=== PATIENT | male | born 1960 | race Caucasian/White ===

== ENCOUNTER → 2019-05-01 | Outpatient (CLI) | payer OTHER, SELFPAY ==
[2017-04-14 09:40] VITALS: BMI 28.5
[2019-05-01 10:14] LABS: Absolute Lymphocyte Count 1.25 X10^3/ul (0.83-4.51); Absolute Neutrophil Count 2.9 X10^3/uL (2.0-7.7); Basophil# 0.02 X10^3/uL; Basophil% 0.4 % (0-1); Eosinophil# 0.18 X10^3/uL; Eosinophils% 3.7 % (0-5); Hematocrit 42.1 % (40-54); Lymphocyte # 1.25 X10^3/ul (4.0); Lymphocyte % 25.9 % (19-41); Mean Corp Hgb Conc 33.3 g/gl (32-36); Mean Corpuscular Hgb 29.7 pg (27.0-32.0); Mean Corpuscular Volume 89.4 fL (80-94); Mean Platelet Vol. 10.2 fl (6.2-12.0); Monocyte# 0.44 X10^3/uL; Monocyte% 9.1 % (0-10); Neutrophil # 2.93 X10^3/uL (2.7-7.7); Neutrophil % 60.9 % (47-70); Platelet Count 167 K/mm3 (150-450); RBC Distribution Width CV 12.4 % (11.6-14.6); RBC Distribution Width SD 40.1 fl (35.1-43.9); Red Blood Count 4.71 M/mm3 (4.6-6.2); White Blood Count 4.8 K/mm3 (4.4-11.0)
[2019-05-01 10:17] LABS: POSITIVE COUNT NO; POSITIVE DIFFERENTIAL NO; POSITIVE MORPHOLOGY NO
[2019-05-01 10:46] LABS: AST(SGOT) 31 U/L (15-37); Alanine Aminotransfer ALT/SGPT 40 U/L (16-61); Albumin, Serum 3.9 g/dL (3.2-5.0); Alkaline Phosphatase 70 U/L (45-117); Bilirubin, Direct 0.11 mg/dL (0.00-0.30); Globulin 3.3 g/dL (2.2-4.2); Protein, Total 7.2 g/dL (6.4-8.2)
== END | disposition home or self-care (01) ==
LOC: LAB 09:33
PROVIDERS: Family Provider Family Medicine; PCP Family Medicine; Referring Provider Dermatology; Visit Provider Dermatology
DX: Z79.899 Other long term (current) drug therapy (principal)
CPT/HCPCS: 36415; 80076; 85025

== ENCOUNTER → 2023-02-26 | Outpatient (CLI) | payer MEDICARE, MEDICAID, SELFPAY ==
[2023-02-26 10:52] LABS: EXAGEN MAILED SPECIMEN
[2023-02-26 12:56] LABS: Absolute Lymphocyte Count 1.44 X10^3/uL (0.83-4.51); Absolute Neutrophil Count 4.8 X10^3/uL (2.0-7.7); Basophil# 0.03 X10^3/uL; Basophil% 0.4 % (0-1); Eosinophil# 0.04 X10^3/uL; Eosinophils% 0.6 % (0-5); Hematocrit 43.6 % (40-54); Hemoglobin 13.7 g/dL (13.0-16.5); Lymphocyte # 1.44 X10^3/ul (0.83-4.51); Lymphocyte % 21.1 % (19-41); Mean Corp Hgb Conc 31.4 g/dL (32-36); Mean Corpuscular Volume 92.4 fL (80-94); Mean Platelet Vol. 10.5 fl (6.2-12.0); Monocyte# 0.51 X10^3/uL; Monocyte% 7.5 % (0-10); NRBC Flagged by Analyzer 0 % (0-5); Neutrophil % 70.3 % (47-70); Platelet Count 225 K/mm3 (150-450); RBC Distribution Width CV 12.9 % (11.6-14.6); RBC Distribution Width SD 44.1 fl (35.1-43.9); Red Blood Count 4.72 M/mm3 (4.6-6.2); White Blood Count 6.8 K/mm3 (4.4-11.0)
[2023-02-26 13:11] LABS: Color, Urine Yellow (Yellow); Glucose, Dipstick Normal (Normal); Ketone-Dipstick Negative (Negative); Leukocyte Esterase-Dipstick Negative /ul (Negative); Nitrite-Dipstick Negative (Negative); Occult Blood-Urine Negative /ul (Negative); Protein-Dipstick 15 mg/dl (Negative); Specific Gravity, Urine 1.015 (1.002-1.030); Urine Bilirubin Dipstick Negative (Negative); Urine Clarity Clear (Clear); Urine Urobilinogen Normal (Normal)
[2023-02-26 13:42] LABS: ALB/GLOB Ratio 1.1 RATIO (0.9-2.4); AST(SGOT) 40 U/L (15-37); Alanine Aminotransfer ALT/SGPT 61 U/L (16-61); Albumin, Serum 4.2 g/dL (3.2-5.0); Alkaline Phosphatase 78 U/L (45-117); Anion Gap 6 (5-15); BUN 24 mg/dL (7-18); BUN/Creat Ratio 24.5 RATIO (10-20); Calcium,Total 9.8 mg/dL (8.5-10.1); Chloride 104 mmol/L (98-107); Creatinine, Serum 0.98 mg/dL (0.70-1.30); EST Glomerular Filtration Rate 82 mL/min (>60); Est Glom Filt Rate - Afr Amer 99 mL/min (>60); Globulin 3.8 g/dL (2.2-4.2); Glucose 87 mg/dL (74-106); Sodium Level 136 mmol/L (136-145)
[2023-02-26 13:54] LABS: Protein, Urine (Random) 19.2 mg/dL (<11.9); Protein:Creat Ratio 188 mg/g CRE (0-200)
[2023-02-26 14:19] LABS: Hepatitis B Surface Antibody Non-Reactive; Hepatitis B Surface Antigen Non-Reactive (Nonreactive); Hepatitis C Antibody Non-Reactive (Nonreactive)
== END | disposition home or self-care (01) ==
PROVIDERS: PCP Family Medicine; Referring Provider Internal Medicine Rheumatology; Visit Provider Internal Medicine Rheumatology
DX: L40.59 Other psoriatic arthropathy (principal); L40.8 Other psoriasis; R76.8 Other specified abnormal immunological findings in serum; M65.311 Trigger thumb, right thumb
CPT/HCPCS: 36415; 80053; 81002; 82570; 84156; 85025; 86140; 86706; 86803; 87340

== ENCOUNTER 2024-05-11 07:15 | Emergency (ER) | payer MEDICARE, MEDICAID, SELFPAY ==
[2024-05-11 07:16] VITALS: BP 163/81; PULSE 68; RESP 15; TEMP 36.4; O2SAT 99; BMI 26.9
--- NOTE | 2024-05-11 07:27 | CT_ITS ---
STUDY: CT ABDOMEN AND PELVIS WITHOUT CONTRAST REASON FOR EXAM: Male, 64 years old. History of a small left renal calculus. RADIATION DOSAGE (If Supplied By Facility): CTDIvol = ( 7.92 ) mGy, DLP = ( 450.57 ) mGycm TECHNIQUE: Transaxial images were obtained from the dome of the diaphragm to the symphysis pubis without oral contrast, and without intravenous contrast. Sagittal and coronal images were reconstructed. Individualized dose optimization techniques were used for this CT. COMPARISON: None. FINDINGS: Increased linear markings with areas of confluence in both lower lobes more prominent on the right side suggestive of bibasilar atelectasis. The visualized portions of the heart are within normal limits. Normal liver. Normal gallbladder and extrahepatic biliary system. Normal spleen. Normal pancreas. Normal bilateral adrenal glands. There is a nonobstructive 3.8 mm calculus in the mid aspect of the right kidney. There is a 2.2 mm nonobstructive calculus in the upper pole calyx of the left kidney. 2 mm nonobstructive calculus in a lower pole calyx of the left kidney. There is a 1.5 cm cyst in the upper lateral aspect of the left kidney. There is evidence of left perinephric stranding. Mild degree of left hydronephrosis and left hydroureter due to a 5.4 mm calculus at the left ureterovesical junction. Normal visualized stomach. Normal small intestine. Normal colon. The appendix is visualized and appears normal. There is diffuse atherosclerotic calcification of the abdominal aorta, without a demonstrated aneurysm. Normal inferior vena cava. Normal retroperitoneum. Normal urinary bladder. There are prostatic calcifications. Small bilateral inguinal hernias containing fat more prominent on the left side. There are diffuse degenerative changes of the visualized lumbar spine. Status post right total hip replacement. CT/Abdomen/Pelvis without Cont IMPRESSION: There is a 5.4 mm calculus at the left ureterovesical junction causing mild degree of left hydronephrosis with left perinephric stranding. Small bilateral inguinal hernias containing fat slightly more prominent on the left side. Nonobstructive bilateral intrarenal calculi. Increased markings at the lung bases slightly worse on the right lung base suggestive of bibasilar atelectasis. Electronically Signed: Hipolito Leonardo MD at 9:01 EDT ,
--- NOTE | 2024-05-11 07:28 | EX.ED.DYSGE1 ---
HPI History of Present Illness Chief Complaint: Flank Pain Narrative Narrative: 64-year-old male past medical history of hypertension, previous kidney stones, states that 4 days ago he was at an outside facility and was diagnosed with at least a 5 mm stone on the left. He does not follow-up with urology regularly. No recent hematuria, no fevers or chills but he has been nauseated. He states he was placed on ciprofloxacin, and oxycodone along with Flomax. He took the medication this morning at around 330, approximately 4 hours ago, and did not have relief of his symptoms. He is having left-sided pain that radiates towards the right. Still no hematuria or other symptoms. He presents for pain control. [facility] Home Medications ?Medication ?Instructions ?Recorded ?Last Taken ?Type Cortisone Shot 04/14/17 04/08/17 History calcium carbonate 500 mg PO DAILY 04/14/17 Unknown History doxycycline hyclate 100 mg capsule 100 mg PO BID ##20 04/14/17 Unknown Rx fluoxetine 20 mg capsule 20 mg PO BID 04/14/17 Unknown History multivitamin,ib-jeis-qosbfnif 27 1 tab PO DAILY 04/14/17 Unknown History mg-0.4 mg tablet (Therems-M) naproxen 250 mg tablet 250 mg PO BID 04/14/17 Unknown History omega 3-dha 60 mg-epa 90 mg-fish 1 cap PO DAILY 04/14/17 Unknown History oil 500 mg capsule, delayed release (Fish Oil) ketorolac 10 mg tablet 10 mg PO TID PRN pain 5 days #15 05/11/24 Unknown Rx tabs Allergy/AdvReac Type Severity Reaction Status Date / Time No Known Allergies Allergy Verified 05/11/24 07:20 Social History Smoking Status: Never smoker ROS ROS ED ROS Narrative Constitutional: No fever, no chills. HEENT: No sore throat. No neck pain. No loss of vision. No rhinorrhea. Cardiovascular: No chest pain. No palpitations. No pedal edema. Respiratory: No cough, no shortness of breath. Abdominal: No abdominal pain. Positive nausea. No vomiting. Genitourinary: No dysuria. No hematuria. Positive left flank pain. Left flank pain radiates towards the right. Musculoskeletal: No myalgias. No arthralgias. Neurologic: No headaches. No dizziness. No lightheadedness. Skin: No rash. No change in color. Psychiatric: No depression. No anxiety. EXAM Physical Exam Narrative Exam Narrative: Afebrile. Vital signs noted. Regular rate and rhythm. Lungs clear to auscultation bilaterally. Abdomen soft nontender with normal active bowel sounds. No CVA tenderness to percussion, left. Neurological examination nonfocal and nonlateralizing. Const Vital Signs: 05/11/24 07:16 05/11/24 09:09 Temperature 97.5 F L 98.1 F Temperature Source Temporal Pulse Rate 68 78 Respiratory Rate 15 18 Blood Pressure 163/81 H 160/81 H Blood Pressure Mean 108 107 Pulse Ox 99 98 Oxygen Delivery Method Room Air MDM MDM MDM Narrative Medical decision making narrative: With the patient's reported history of ureterolithiasis, suspicion is high for uncontrolled ureteral colic. Also in the differential diagnosis but not limited to is pyelonephritis. I have low suspicion for diverticulitis or other reasons for his left flank pain because the history and physical does not support this. He will be given Toradol intravenously, I do feel that repeat imaging is indicated to see if the stone has moved or to try and size the stone. Additionally, basic laboratory work will be obtained. I reviewed his laboratory work and he has normal white count of 9.8, hemoglobin slightly low at 11.9 with platelet count 169. Electrolyte panel is remarkable for anion gap low at 4, BUN normal at 17 with creatinine also normal at 1.25, glucose is elevated at 118. Urinalysis is negative for infection with 0 WBCs, but there is occult blood at 250, and RBCs 25-50. I do not feel antibiotics are indicated. Urine was sent for culture. Upon repeat examination at approximately 8:30 AM, patient is resting comfortably and feels improved after Toradol. I do feel that this needs to be added to his outpatient regime. He already has oxycodone and is on tamsulosin. He will also be referred to the urologist on-call, Dr. Morris. I reviewed the radiology report of the CT of the abdomen and pelvis without contrast which does show a 5.4 mm ureterovesicular stone. Repeat examination at approximately 9:10 AM shows him to be continually comfortable. I feel he can be discharged to follow-up with urology. He was written a prescription for Toradol and was informed of the risk of ulcer formation and hemorrhage and acknowledges an understanding. Return instructions to the emergency department were reviewed. Disposition is discharged home in stable condition. History & Record Review Discussion w/independent historian: Patient and Family Additional record(s) reviewed:: Prior ED visit Lab Data Attestation: I reviewed the patient's lab results. Labs: Laboratory Results - last 24 hr 05/11/24 07:33 WBC 9.8 RBC 4.08 L Hgb 11.9 L Hct 36.9 L MCV 90.4 MCH 29.2 MCHC 32.2 RDW Std Deviation 41.5 RDW Coeff of Jaquan 12.6 Plt Count 169 MPV 9.8 Immature Gran % (Auto) 0.400 Neut % (Auto) 80.5 H Lymph % (Auto) 10.9 L Towner % (Auto) 7.0 Eos % (Auto) 0.9 Baso % (Auto) 0.3 Absolute Neuts (auto) 7.9 H Absolute Lymphs (auto) 1.07 Nucleated RBC % 0 Sodium 136 Potassium 4.1 Chloride 103 Carbon Dioxide 29.0 Anion Gap 4 L BUN 17 Creatinine 1.25 Estim Creat Clear Calc 58.92 Est GFR (MDRD) Af Amer 75 Est GFR (MDRD) Non-Af 62 BUN/Creatinine Ratio 13.6 Glucose 118 H Calcium 9.6 Urine Color Yellow Urine Clarity Clear Urine pH 7.0 Ur Specific [place] 1.015 Urine Protein 30 H Urine Glucose (UA) Normal Urine Ketones Negative Urine Occult Blood 250 H Urine Nitrite Negative Urine Bilirubin Negative Urine Urobilinogen Normal Ur Leukocyte Esterase Negative Urine RBC 25-50 SEEN Urine WBC 0 SEEN Ur Squamous Epith Cells 0 SEEN Urine Bacteria 0 SEEN Urine Mucus 0 SEEN Radiography Diagnostic Testing: Clinical Impression(s) from Imaging Studies Abdomen/Pelvis CT 05/11/24 07:27 IMPRESSION: There is a 5.4 mm calculus at the left ureterovesical junction causing mild degree of left hydronephrosis with left perinephric stranding. Small bilateral inguinal hernias containing fat slightly more prominent on the left side. Nonobstructive bilateral intrarenal calculi. Increased markings at the lung bases slightly worse on the right lung base suggestive of bibasilar atelectasis. Electronically Signed: Hipolito Leonardo MD at 9:01 EDT , Discharge Plan Triage Chief Complaint: Flank Pain ED Provider: Oneal Berman Dx/Rx/DC Orders Clinical Impression: Left ureteral calculus, Left flank pain Instructions: ED Kidney Stone with Pain Prescriptions: New ketorolac 10 mg tablet 10 mg PO TID PRN (Reason: pain) 5 Days Qty: 15 0RF No Action naproxen 250 MG tablet 250 mg PO BID calcium carbonate 500 MG tablet,chewable 500 mg PO DAILY fluoxetine 20 MG capsule 20 mg PO BID multivitamin,fz-xcqs-laeugoar [Therems-M] 1 TABLET tablet 1 tab PO DAILY omega 9-lkq-sce-fish oil [Fish Oil] 500 MG capsule,delayed release(DR/EC) 1 cap PO DAILY Cortisone Shot doxycycline hyclate 100 MG capsule 100 mg PO BID Qty: 20 0RF Primary Care Provider: John Juárez Referrals: Gustavo Morris MD [Med Staff - Active Staff] - 3-5 Days John Juárez MD [Primary Care Provider] - Activity Restrictions/Additional Instructions: Continue your previous medications as directed. Follow-up with urology within the next week. Print Language: Hungarian Disposition Disposition: Home, Self Care
[2024-05-11 07:42] LABS: Bacteria 0 SEEN /hpf (None Seen); Mucous, Urine 0 SEEN /hpf (<or=2+); Squamous Epithelial Cells - UA 0 SEEN /hpf (0-5); White Blood Cells 0 SEEN /hpf (0-5)
[2024-05-11] MEDS: Ketorolac 15 MG/ML Vial IV (07:42)
[2024-05-11] MEDS: 0.9% Normal Saline (1000mL) 1,000 ML 250 ML IV (07:42)
[2024-05-11] MEDS: Ondansetron 4 MG/2 ML Vial IV (07:42)
[2024-05-11 07:57] LABS: Anion Gap 4 (5-15); BUN 17 mg/dL (7-18); BUN/Creat Ratio 13.6 RATIO (10-20); Calcium,Total 9.6 mg/dL (8.5-10.1); Chloride 103 mmol/L (98-107); Creatinine, Serum 1.25 mg/dL (0.70-1.30); EST Glomerular Filtration Rate 62 mL/min (>60); Est Glom Filt Rate - Afr Amer 75 mL/min (>60); Estimated Creatinine Clearance 58.92 ml/min; Glucose 118 mg/dL (74-106); Potassium 4.1 mmol/L (3.5-5.1); Sodium Level 136 mmol/L (136-145)
[2024-05-11 08:01] LABS: Absolute Lymphocyte Count 1.07 X10^3/uL (0.83-4.51); Absolute Neutrophil Count 7.9 X10^3/uL (2.0-7.7); Basophil# 0.03 X10^3/uL; Basophil% 0.3 % (0-1); Eosinophil# 0.09 X10^3/uL; Eosinophils% 0.9 % (0-5); Hematocrit 36.9 % (40-54); Hemoglobin 11.9 g/dL (13.0-16.5); Lymphocyte # 1.07 X10^3/ul (0.83-4.51); Lymphocyte % 10.9 % (19-41); Mean Corp Hgb Conc 32.2 g/dL (32-36); Mean Corpuscular Hgb 29.2 pg (27.0-32.0); Mean Corpuscular Volume 90.4 fL (80-94); Mean Platelet Vol. 9.8 fl (6.2-12.0); Monocyte# 0.68 X10^3/uL; NRBC Flagged by Analyzer 0 % (0-5); Neutrophil # 7.87 X10^3/uL (2.7-7.7); Neutrophil % 80.5 % (47-70); Platelet Count 169 K/mm3 (150-450); RBC Distribution Width CV 12.6 % (11.6-14.6); RBC Distribution Width SD 41.5 fl (35.1-43.9); Red Blood Count 4.08 M/mm3 (4.6-6.2); White Blood Count 9.8 K/mm3 (4.4-11.0)
[2024-05-11 08:16] LABS: Color, Urine Yellow (Yellow); Glucose, Dipstick Normal (Normal); Ketone-Dipstick Negative (Negative); Leukocyte Esterase-Dipstick Negative /ul (Negative); Nitrite-Dipstick Negative (Negative); Occult Blood-Urine 250 /ul (Negative); Protein-Dipstick 30 mg/dl (Negative); Specific Gravity, Urine 1.015 (1.002-1.030); Urine Bilirubin Dipstick Negative (Negative); Urine Clarity Clear (Clear); Urine Urobilinogen Normal (Normal)
[2024-05-11 08:46] LABS: Red Blood Cells-Urine 25-50 SEEN /hpf (0-5)
[2024-05-11 09:09] VITALS: BP 160/81; PULSE 78; RESP 18; TEMP 36.7; O2SAT 98
== END 2024-05-11 09:16 | disposition home or self-care (01) ==
PROVIDERS: Emergency Provider Emergency Medicine; PCP Family Medicine; Visit Provider Emergency Medicine
DX: N13.2 Hydronephrosis with renal and ureteral calculous obstruction (principal); R10.9 Unspecified abdominal pain
CPT/HCPCS: 74176; 80048; 81001; 85025; 87086; 96374; 96375; 96376; 99282; J7030; A4216; J2405